=== PATIENT | male | born 1985 | race African-American/Black ===

== ENCOUNTER 2018-01-31 01:39 | Emergency (ER) | payer SELFPAY ==
[~2018-01-31] VITALS: Ht 188 cm; Wt 100.0 kg
[2018-01-31] MEDS ORDERED: SODIUM CHLORIDE 0.9% 1,000 ML IV ONE (02:39)
[2018-01-31 03:15] LABS: BASOPHILS % 0.6 % (0.0-2.0); EOSINOPHILS % 0.8 % (0.0-5.0); HEMATOCRIT. 41.1 % (42.0-52.0); HEMOGLOBIN. 13.4 g/dL (14.0-18.0); LYMPHOCYTES % 20.3 % (20.0-50.0); MEAN CORPUSCULAR HEMOGLOBIN 27.9 pg (28.0-32.0); MEAN CORPUSCULAR VOLUME 85.4 fL (80.0-94.0); MONOCYTES % 9.3 % (2.0-8.0); RED BLOOD CELL COUNT 4.81 mill/uL (4.7-6.1); RED CELL DISTRIBUTION WIDTH 14.9 % (11.6-14.6)
[2018-01-31 03:21] LABS: CHLORIDE 107 mEq/L (98-107)
[2018-01-31 03:25] LABS: ETHANOL BLOOD < 10 mg/dL
[2018-01-31 03:38] LABS: MEAN PLATELET VOLUME 8.1 fl (7.4-10.4); PLATELET 214 x1000/uL (130-400)
[2018-01-31 03:48] LABS: CARBAMAZEPINE < 0.5 ug/mL (4-12); PHENOBARBITAL < 2.1 ug/mL (15.0-40.0); VALPROIC ACID < 3.0 ug/mL (50-100)
[2018-01-31] MEDS ORDERED: LEVETIRACETAM 500MG PREMIX 100 ML IV ONE (04:00)
[2018-01-31] MEDS ORDERED: IOHEXOL-300 100 ML BOTTLE ONE (05:27)
[2018-01-31] MEDS ORDERED: LEVETIRACETAM 500MG TABLET PO ONE (06:30)
[2018-01-31 06:43] VITALS: BP 110/93
== END 2018-01-31 07:45 | disposition home or self-care (01) ==
LOC: ER 01:39
DX: S39.81XA Other specified injuries of abdomen, initial encounter (principal); R56.9 Unspecified convulsions; F15.10 Other stimulant abuse, uncomplicated; J45.909 Unspecified asthma, uncomplicated; R47.81 Slurred speech; Y08.89XA Assault by other specified means, initial encounter; Y93.89 Activity, other specified; Y92.89 Other specified places as the place of occurrence of the external cause; Y99.8 Other external cause status
CPT/HCPCS: 36415; 70450; 71045; 74177; 80053; 80156; 80165; 80184; 80185; 85025; 96365; 99285; G0482; J1953; J7030; Q9967; Z7610